=== PATIENT | female | born 1995 ===

== ENCOUNTER 2016-11-26 15:53 | Emergency (ER) | payer OTHER ==
[2016-11-26 15:54] VITALS: BMI 23.0
[2016-11-26 16:23] VITALS: TEMP 98.3
--- NOTE | 2016-11-26 17:45 | C.PDOC ---
Time Seen by Provider: 11/26/16 16:35 Chief Complaint (Nursing): Lower Extremity Problem/Injury Past Medical History Vital Signs: Last Vital Signs Temp 98.3 F 11/26/16 16:18 Pulse 76 11/26/16 16:18 Resp 20 11/26/16 16:18 BP 132/89 11/26/16 16:18 Pulse Ox 100 11/26/16 16:18 - Medical History PMH: Denies: HIV, Chronic Kidney Disease Family History: States: Unknown Family Hx - Social History Hx Alcohol Use: No Hx Substance Use: No - Immunization History Hx Tetanus Toxoid Vaccination: Yes Hx Influenza Vaccination: Yes Hx Pneumococcal Vaccination: Yes ED Course And Treatment O2 Sat by Pulse Oximetry: 100 Disposition - Disposition Referrals: Yvette Dow MD [Staff Provider] - Disposition: HOME/ ROUTINE Disposition Time: 17:43 Condition: STABLE Additional Instructions: Follow up with PMD and Orthopedist within 1-2 days. Return to ED if feel worse. Prescriptions: Ibuprofen [Motrin Tab] 600 mg PO Q8 #30 tab Instructions: Ankle Sprain (ED), Ankle Stirrup Splint (ED) Forms: School Excuse, Work Excuse Print Language: CROATIAN - Clinical Impression Clinical Impression: Ankle sprain
--- NOTE | 2016-11-26 17:46 | C.PDOC ---
History Of Present Illness A 21 year old female presents to the emergency room with right ankle and right foot pain after tripping and falling this morning. Patient notices some swelling. There are no exacerbating or relieving factors. Patient is able to ambulate without difficulty. Patient denies any head trauma/injury, any other pain, numbness, weakness, any sensory changes, or any other complaints. Time Seen by Provider: 11/26/16 16:35 Chief Complaint (Nursing): Lower Extremity Problem/Injury History Per: Patient History/Exam Limitations: no limitations Onset/Duration Of Symptoms: Hrs Current Symptoms Are (Timing): Still Present Severity: Mild Recent travel outside of the [place]: No - Ankle/Foot Description Of Injury: Fell Past Medical History Reviewed: Historical Data, Nursing Documentation, Vital Signs Vital Signs: Last Vital Signs Temp 98.3 F 11/26/16 16:18 Pulse 72 11/26/16 17:48 Resp 18 11/26/16 17:48 BP 120/71 11/26/16 17:48 Pulse Ox 100 11/27/16 16:22 - Medical History PMH: Denies: HIV, Chronic Kidney Disease Family History: States: Unknown Family Hx - Social History Hx Alcohol Use: No Hx Substance Use: No - Immunization History Hx Tetanus Toxoid Vaccination: Yes Hx Influenza Vaccination: Yes Hx Pneumococcal Vaccination: Yes Review Of Systems Except As Marked, All Systems Reviewed And Found Negative. Constitutional: Negative for: Fever, Chills Gastrointestinal: Negative for: Nausea, Vomiting, Diarrhea Musculoskeletal: Positive for: Foot Pain (Right ankle and right foot pain) Neurological: Negative for: Weakness, Numbness Physical Exam - Physical Exam Appears: Well, Non-toxic, No Acute Distress Skin: Normal Color, Warm, Dry Head: Atraumatic, Normacephalic Extremity: Normal ROM, Tenderness (Some swelling and tenderness to the right medial malleolus.), No Pedal Edema, No Calf Tenderness, No Deformity, Swelling Pulses: Left Dorsalis Pedis: Normal, Right Dorsalis Pedis: Normal Neurological/Psych: Oriented x3, Normal Speech, Normal Cognition, Normal Motor, Normal Sensation Gait: Steady ED Course And Treatment O2 Sat by Pulse Oximetry: 100 - Other Rad X-ray X-Ray: Interpreted by Me, Viewed By Me Interpretation: Right Foot X-ray Impression: As read by me, no acute fractures or dislocations. Right Ankle X-ray Impression: As read by me, no acute fractures or dislocations. Progress Note: X-rays are negative. Tylenol given for pain. On reassessment, patient is resting comfortably, with improvement of right foot and ankle pain. Patient remains afebrile, with no bony tenderness, extremity numbness or weakness, or any other pain. Patient wastreated with aircast and crutches that were applied by CP and checked by me. Patient was advised to follow up with PMD/ Ortho in 1-2 days. Disposition - Disposition Referrals: Yvette Dow MD [Staff Provider] - Disposition: HOME/ ROUTINE Disposition Time: 17:46 Condition: STABLE Additional Instructions: Follow up with PMD and Orthopedist within 1-2 days. Return to ED if feel worse. Prescriptions: Ibuprofen [Motrin Tab] 600 mg PO Q8 #30 tab Instructions: Ankle Sprain (ED), Ankle Stirrup Splint (ED) Forms: School Excuse, Work Excuse Print Language: CENTRAL AFRICAN - Clinical Impression Clinical Impression: Ankle sprain - Scribe Statement The provider has reviewed the documentation as recorded by the Scribnaida Palacios All medical record entries made by the Scribe were at my direction and personally dictated by me. I have reviewed the chart and agree that the record accurately reflects my personal performance of the history, physical exam, medical decision making, and the department course for this patient. I have also personally directed, reviewed, and agree with the discharge instructions and disposition.
[2016-11-26 17:48] VITALS: BP 120/71; PULSE 72; RESP 18
[2016-11-26 17:49] VITALS: O2SAT 100
--- NOTE | 2016-11-27 10:11 | RAD ---
PROCEDURE: Right Foot Radiographs. HISTORY: injury COMPARISON: None. FINDINGS: BONES: Normal. No fracture. JOINTS: Normal. SOFT TISSUES: Normal. OTHER FINDINGS: None. IMPRESSION: Normal right foot radiographs.
--- NOTE | 2016-11-27 10:12 | RAD ---
PROCEDURE: Right Ankle Radiographs. HISTORY: fall COMPARISON: None FINDINGS: BONES: Normal. No fracture. JOINTS: Normal. No osteoarthritis. Ankle mortise maintained. Talar dome intact SOFT TISSUES: Normal. OTHER FINDINGS: None. IMPRESSION: Normal right ankle radiographs.
== END 2016-11-26 18:02 | disposition home or self-care (01) ==
LOC: C.ER 15:53
DX: S93.401A Sprain of unspecified ligament of right ankle, initial encounter (principal); W01.0XXA Fall on same level from slipping, tripping and stumbling without subsequent striking against object, initial encounter

== ENCOUNTER 2017-09-28 07:48 | Emergency (ER) | payer SELFPAY ==
[2017-09-28 07:53] VITALS: BMI 22.3
[2017-09-28 07:55] VITALS: RESP 18
[2017-09-28] MEDS ORDERED: Dexamethasone 4 mg/1 ml IVP STA (08:14)
[2017-09-28] MEDS ORDERED: Sodium Chloride 0.9% 1,000 ML IV STA (08:14)
[2017-09-28] MEDS ORDERED: Sodium Chloride 0.9% 1,000 ML ONE (08:28)
[2017-09-28] MEDS ORDERED: Dexamethasone 4 mg/1 ml ONE (08:28)
[2017-09-28 08:40] LABS: SQUAMOUS EPITHIAL 3 /hpf (0-5); URINE BILIRUBIN NEGATIVE (NEGATIVE); URINE BLOOD NEGATIVE (NEGATIVE); URINE CLARITY Clear (Clear); URINE COLOR Yellow (YELLOW); URINE GLUCOSE (UA) NORMAL (Normal); URINE LEUKOCYTE ESTERASE NEG Leu/uL (Negative); URINE NITRATE NEGATIVE (NEGATIVE); URINE PROTEIN NEGATIVE (NEGATIVE)
[2017-09-28 08:41] LABS: HCG,QUALITATIVE URINE NEGATIVE (NEGATIVE)
[2017-09-28 08:42] LABS: BASO # 0.1 K/uL (0.0-0.2); BASO % 0.5 % (0.0-2.0); HEMOGLOBIN 13.7 g/dL (11.0-16.0); LYMPH # 1.1 K/uL (1.0-4.3); MEAN CELL VOLUME 90.7 fL (81.0-99.0); MEAN CORPUSCULAR HGB CONC 34.2 g/dL (33.0-37.0); MEAN PLATELET VOLUME 8.6 fL (7.2-11.7); MONO # 0.8 K/uL (0.0-0.8); MONO % 7.8 % (0.0-10.0); NEUT # 8.9 K/uL (1.8-7.0); NEUT % 81.7 % (50.0-75.0); RBC 4.43 Mil/uL (3.80-5.20); RED CELL DISTRIBUTION WIDTH 13.3 % (11.5-14.5); WHITE BLOOD COUNT 10.9 K/uL (4.8-10.8)
[2017-09-28 08:57] LABS: ALB/GLOB RATIO 1.1 (1.0-2.1); ALBUMIN 4.4 g/dL (3.5-5.0); ALT/SGPT 28 U/L (9-52); AST/SGOT 21 U/L (14-36); BLOOD UREA NITROGEN 8 mg/dL (7-17); CALCIUM 9.5 mg/dl (8.6-10.4); GFR AFRICAN-AMERICAN > 60; GFR NON-AFRICAN AMERICAN > 60
--- NOTE | 2017-09-28 09:48 | C.PDOC ---
History Of Present Illness 22 yr old female presents to the ER with complaints of fever, sore throat and headache for the past 2 days. Patient denies sick contact, vision changes, chest pain, SOB, nausea, vomiting, abdominal pain, weakness or numbness. Time Seen by Provider: 09/28/17 07:56 Chief Complaint (Nursing): ENT Problem History Per: Patient History/Exam Limitations: None Onset/Duration Of Symptoms: Days (2) Current Symptoms Are (Timing): Still Present Past Medical History Reviewed: Historical Data, Nursing Documentation, Vital Signs Vital Signs: Last Vital Signs Temp 100.0 F H 09/28/17 09:55 Pulse 80 09/28/17 09:55 Resp 18 09/28/17 09:55 BP 128/78 09/28/17 09:55 Pulse Ox 97 09/28/17 11:04 Family History: States: No Known Family Hx - Social History Hx Alcohol Use: No Hx Substance Use: No - Immunization History Hx Tetanus Toxoid Vaccination: No Hx Influenza Vaccination: No Hx Pneumococcal Vaccination: No Review Of Systems Except As Marked, All Systems Reviewed And Found Negative. Constitutional: Positive for: Fever (subjective) Eyes: Negative for: Vision Change ENT: Positive for: Throat Pain (sore throat) Cardiovascular: Negative for: Chest Pain Respiratory: Negative for: Shortness of Breath Gastrointestinal: Negative for: Nausea, Vomiting, Abdominal Pain Neurological: Positive for: Headache. Negative for: Weakness, Numbness Physical Exam - Physical Exam Appears: Non-toxic, No Acute Distress Skin: Warm, Dry Head: Atraumatic, Normacephalic Eye(s): bilateral: Normal Inspection, PERRL, EOMI Ear(s): Bilateral: Normal Oral Mucosa: Moist Throat: Erythema, Exudate (grayish tonsilar exudates) Neck: Normal, Normal ROM, Supple Lymphatic: Adenopathy (anterior cervical adenopathy) Cardiovascular: Rhythm Regular, No Murmur Respiratory: Normal Breath Sounds, No Rales, No Rhonchi, No Stridor, No Wheezing Gastrointestinal/Abdominal: Normal Exam, Soft, No Tenderness, No Organomegaly, No Distention, No Guarding, No Rebound Extremity: Normal ROM, No Swelling Neurological/Psych: Oriented x3, Normal Speech, Normal Motor, Normal Sensation ED Course And Treatment - Laboratory Results Result Diagrams: 09/28/17 08:39 03/04/18 08:39 O2 Sat by Pulse Oximetry: 97 (RA) Pulse Ox Interpretation: Normal Progress Note: Patient tested positive for monospot. Treated with IV fluids, Toradol and Decadron. On reevaluation, patient reports improvement in symptoms. Denies difficulty swallowing. Patient is dischagred home to follow up at the clinic in 1-2 days for further evaluation. Medical Decision Making Medical Decision Making: PLAN: * Labs * Monospot * Rapid Strep * HCG * Urinalysis * Decadron IVP * Toradol IVP * Sodium Chloride IV Disposition - Disposition Referrals: [facility] [Outside] Disposition: HOME/ ROUTINE Disposition Time: 09:45 Condition: IMPROVED Additional Instructions: Follow up with PMD within 1-2 days. Return to ED if feel worse. 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 - Scribe Statement The provider has reviewed the documentation as recorded by the Scribe Chery Albright All medical record entries made by the Scribe were at my direction and personally dictated by me. I have reviewed the chart and agree that the record accurately reflects my personal performance of the history, physical exam, medical decision making, and the department course for this patient. I have also personally directed, reviewed, and agree with the discharge instructions and disposition.
[2017-09-28 09:55] VITALS: BP 128/78; PULSE 80; TEMP 100
[2017-09-28 11:05] VITALS: O2SAT 97
== END 2017-09-28 10:00 | disposition home or self-care (01) ==
LOC: C.ER 07:48
DX: B27.90 Infectious mononucleosis, unspecified without complication (principal)
CPT/HCPCS: 80053; 81001; 84703; 85025; 86308; 87070; 87430; 96361; 96374; 96375; 99283; J1100; J1885; J7040

== ENCOUNTER 2017-12-05 16:21 | Emergency (ER) | payer OTHER ==
[2017-12-05 16:22] VITALS: BMI 22.3
[2017-12-05 16:26] VITALS: TEMP 98.1
--- NOTE | 2017-12-05 17:15 | C.PDOC ---
History Of Present Illness 22 y/o female presents to ED with complaints of vaginal bleeding and suprapubic cramping for 5 days associated with back pain. Patient states she was late on her menses 10/30/17 and took 2 home test which was positive. The patient went to clinic yesterday where they did urine test and blood test, the urine was negative and she was told she "had a miscarriage". She does not know results of blood test. Patient is concerned she is bleeding and wants to know if she is . Denies fever, chills, vomiting, dysuria or dizziness. LMP Time Seen by Provider: 12/05/17 16:58 Chief Complaint (Nursing): Female Genitourinary History Per: Patient History/Exam Limitations: no limitations Onset/Duration Of Symptoms: Days Current Symptoms Are (Timing): Still Present Past Medical History Reviewed: Historical Data, Nursing Documentation, Vital Signs Vital Signs: Last Vital Signs Temp 98.1 F 12/05/17 16:25 Pulse 84 12/05/17 17:29 Resp 16 12/05/17 17:29 BP 119/74 12/05/17 17:29 Pulse Ox 100 12/05/17 17:50 - Medical History PMH: No Chronic Diseases Surgical History: No Surg Hx Family History: States: No Known Family Hx - Social History Hx Alcohol Use: No Hx Substance Use: No - Immunization History Hx Tetanus Toxoid Vaccination: No Hx Influenza Vaccination: No Hx Pneumococcal Vaccination: No Review Of Systems Constitutional: Negative for: Fever, Chills Gastrointestinal: Negative for: Nausea, Vomiting Genitourinary: Positive for: Vaginal Bleeding. Negative for: Dysuria Skin: Negative for: Rash Neurological: Negative for: Weakness, Numbness Physical Exam - Physical Exam Appears: Non-toxic, No Acute Distress Skin: Warm, Dry, No Rash Head: Atraumatic, Normacephalic Eye(s): bilateral: Normal Inspection, EOMI Oral Mucosa: Moist Neck: Normal ROM, Supple Cardiovascular: Rhythm Regular Respiratory: Normal Breath Sounds, No Rales, No Rhonchi, No Wheezing Gastrointestinal/Abdominal: Soft, No Tenderness, No Guarding, No Rebound Extremity: Normal ROM, Capillary Refill (<2 seconds) Neurological/Psych: Oriented x3, Normal Speech, Normal Cognition ED Course And Treatment O2 Sat by Pulse Oximetry: 100 (RA) Pulse Ox Interpretation: Normal Medical Decision Making Medical Decision Making: Impression: vaginal bleeding, unknown preg status Plan: * POC urine preg Progress: test was negative. Patient made aware of the result. 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 Patient stable for discharge Disposition Counseled Patient/Family Regarding: Diagnosis, Need For Followup - Disposition [facility]] Disposition: HOME/ ROUTINE Disposition Time: 17:15 Condition: STABLE Additional Instructions: Tu prueba fue negativa para el embarazo seguimiento en la clnica para ms ara lawrenceskyler Instructions: Tests Forms: [employer] (Serbian) Print Language: ARMENIAN - POA Present On Arrival: None - Clinical Impression Clinical Impression: Negative test - PA / PATROL JUDGE / Resident Statement MD/DO has reviewed & agrees with the documentation as recorded. - Scribe Statement The provider has reviewed the documentation as recorded by the Katja Willett All medical record entries made by the Katja were at my direction and personally dictated by me. I have reviewed the chart and agree that the record accurately reflects my personal performance of the history, physical exam, medical decision making, and the department course for this patient. I have also personally directed, reviewed, and agree with the discharge instructions and disposition.
[2017-12-05 17:30] VITALS: BP 119/74; PULSE 84; RESP 16
[2017-12-05 17:46] VITALS: O2SAT 100
== END 2017-12-05 17:29 | disposition home or self-care (01) ==
LOC: C.ER 16:21
DX: Z32.02 Encounter for pregnancy test, result negative (principal)

== ENCOUNTER 2018-01-15 15:36 | Emergency (ER) | payer OTHER ==
[2018-01-15 15:53] VITALS: O2SAT 100; BMI 24.0
--- NOTE | 2018-01-15 16:19 | C.PDOC ---
History Of Present Illness 22 y/o female c/o lower right arm/wrist pain x 1 week after lifting something heavy. no swelling. no analgesics tried at home, pain worse with certain movement. Denies numbness or weakness. Time Seen by Provider: 01/15/18 15:54 Chief Complaint (Nursing): Finger,Hand,&Wrist History Per: Patient History/Exam Limitations: no limitations Onset/Duration Of Symptoms: Days Current Symptoms Are (Timing): Still Present Quality: "Pain" Severity: Moderate Exacerbating Factor(s): Movement Past Medical History Reviewed: Historical Data, Nursing Documentation, Vital Signs Vital Signs: Last Vital Signs Temp 98 F 01/15/18 17:08 Pulse 60 01/15/18 17:08 Resp 20 01/15/18 17:08 BP 114/70 01/15/18 17:08 Pulse Ox 100 01/15/18 17:24 - Medical History PMH: No Chronic Diseases Denies: HIV, Chronic Kidney Disease Surgical History: No Surg Hx Family History: States: No Known Family Hx - Social History Hx Alcohol Use: No Hx Substance Use: No - Immunization History Hx Tetanus Toxoid Vaccination: No Hx Influenza Vaccination: No Hx Pneumococcal Vaccination: No Review Of Systems Musculoskeletal: Positive for: Arm Pain (lower right arm/ wrist pain), Hand Pain (wrist). Negative for: Neck Pain Skin: Negative for: Rash Neurological: Negative for: Weakness, Numbness Physical Exam - Physical Exam Appears: Non-toxic, No Acute Distress Skin: Warm, Dry Head: Atraumatic, Normacephalic Eye(s): bilateral: Normal Inspection Neck: No Midline Cervical Tenderness, Supple Extremity: Normal ROM, Tenderness (tenderness to radial aspect of distal right forearm, wrist, and hand, worse with ulnar deviation of wrist, no swelling noted. ), Capillary Refill (less than 2 seconds. ), No Swelling Pulses: Left Radial: Normal, Right Radial: Normal Neurological/Psych: Oriented x3, Normal Speech, Normal Cognition, Normal Motor, Normal Sensation ED Course And Treatment O2 Sat by Pulse Oximetry: 100 (RA) Pulse Ox Interpretation: Normal Medical Decision Making Medical Decision Making: Plan: --Tylenol PO pt feeling better after wrist splint applied. will d/c home with ortho f/u Disposition Counseled Patient/Family Regarding: Diagnosis, Need For Followup, Rx Given - Disposition Referrals: Yvette Dow MD [Staff Provider] - James Ca MD [Staff Provider] - [facility] [Outside] Disposition: HOME/ ROUTINE Disposition Time: 17:21 Condition: GOOD Additional Instructions: Por favor, use frula para la mueca para mayor comodidad timmy unos ruiz. Realice un seguimiento con el Dr. Ca, el Dr. Crawford o en lenny clnica mdica ( ortopdica) en los prximos ruiz. Tylenol para el dolor dmitriy prescrbied, comprime en fro varias veces al da. Evite levantar objetos pesados. Please wear wrist splint for comfort for a few days. Please follow up with either Dr Ca, Dr Crawford or in medical(orthopedic) clinic in the next few days. Tylenol for pain as prescrbied, Cold compresses several times a day. Avoid heavy lifting. Prescriptions: Acetaminophen [Tylenol 325mg tab] 650 mg PO Q4 #50 tab Instructions: Wrist Sprain (DC) Forms: Gen Discharge Inst Micronesian, [employer] (Micronesian) Print Language: PERSIAN - Clinical Impression Clinical Impression: Sprain of wrist, right - PA / NURSE SUBSTANCE ABUSE / Resident Statement MD/DO has reviewed & agrees with the documentation as recorded. - Scribe Statement The provider has reviewed the documentation as recorded by the Scribe Jean Ferrer Provider Attestation All medical record entries made by the Scribe were at my direction and personally dictated by me. I have reviewed the chart and agree that the record accurately reflects my personal performance of the history, physical exam, medical decision making, and the department course for this patient. I have also personally directed, reviewed, and agree with the discharge instructions and disposition.
[2018-01-15 17:09] VITALS: BP 114/70; PULSE 60; RESP 20; TEMP 98
== END 2018-01-15 17:31 | disposition home or self-care (01) ==
LOC: C.ER 15:36
DX: S63.501A Unspecified sprain of right wrist, initial encounter (principal); X50.0XXA Overexertion from strenuous movement or load, initial encounter; Y92.9 Unspecified place or not applicable

== ENCOUNTER 2018-04-02 15:26 | Emergency (ER) | payer OTHER ==
[2018-04-02 15:34] VITALS: BMI 23.8
[2018-04-02 15:36] VITALS: BP 132/81; PULSE 62; RESP 16; TEMP 98.7; O2SAT 100
--- NOTE | 2018-04-02 15:44 | C.PDOC ---
History Of Present Illness 22 year old female presents to ED for evaluation of sore throat for the past 4 days. Denies fevers, nausea, vomiting. Denies other associated symptoms. SORE THROAT X 4 DAYS. NO FEVER. DENIES OTHER ASSOC SX EXAM NAD HEENT +PHARYNGITIS W EXUDATE. MIN SWELLING REMAINDER NEG Time Seen by Provider: 04/02/18 15:34 History Per: Patient History/Exam Limitations: no limitations Onset/Duration Of Symptoms: Days Current Symptoms Are (Timing): Still Present Past Medical History Reviewed: Historical Data, Nursing Documentation, Vital Signs Vital Signs: Last Vital Signs Temp 98.7 F 04/02/18 15:35 Pulse 62 04/02/18 15:35 Resp 16 04/02/18 15:35 BP 132/81 04/02/18 15:35 Pulse Ox 100 04/02/18 16:24 - Medical History PMH: Denies: HIV, Chronic Kidney Disease Surgical History: No Surg Hx Family History: States: Unknown Family Hx - Social History Hx Alcohol Use: No Hx Substance Use: No - Immunization History Hx Tetanus Toxoid Vaccination: No Hx Influenza Vaccination: No Hx Pneumococcal Vaccination: No Review Of Systems Except As Marked, All Systems Reviewed And Found Negative. Constitutional: Negative for: Fever, Chills ENT: Positive for: Throat Pain. Negative for: Nose Congestion Respiratory: Negative for: Cough Gastrointestinal: Negative for: Nausea, Vomiting Physical Exam - Physical Exam Appears: Well, Non-toxic, No Acute Distress Skin: Normal Color, Warm, Dry Head: Atraumatic, Normacephalic Eye(s): bilateral: Normal Inspection, PERRL, EOMI Throat: Exudate (+PHARYNGITIS W EXUDATE. MINIMAL SWELLING) Neck: Normal, Supple Chest: Symmetrical Cardiovascular: Rhythm Regular Respiratory: Normal Breath Sounds, Other (NARD) Extremity: Bilateral: Atraumatic, Normal Color And Temperature Pulses: Left Radial: Normal, Right Radial: Normal Neurological/Psych: Oriented x3, Normal Speech Gait: Steady ED Course And Treatment O2 Sat by Pulse Oximetry: 100 (RA) Pulse Ox Interpretation: Normal Medical Decision Making Medical Decision Making: Patient sent home with Amoxcillin, Decadron, Motril. Advised to follow up with PMD. Disposition Counseled Patient/Family Regarding: Diagnosis, Need For Followup, Rx Given - Disposition Referrals: [facility] [Outside] [facility] [Outside] Disposition: HOME/ ROUTINE Disposition Time: 15:42 Condition: GOOD Prescriptions: Amoxicillin [Amoxil 500 mg Cap] 500 mg PO BID #20 cap Dexamethasone [Decadron] 12 mg PO ONCE #3 tab Ibuprofen [Motrin] 600 mg PO Q6 #30 tab Instructions: Sore Throat, Adult (DC) Forms: [facility] (Paraguayan) Print Language: JAPANESE - Clinical Impression Clinical Impression: Pharyngitis - Scribe Statement The provider has reviewed the documentation as recorded by the Scribe (Caitlyn Torrez) Provider Attestation: All medical record entries made by the Scribe were at my direction and personally dictated by me. I have reviewed the chart and agree that the record accurately reflects my personal performance of the history, physical exam, medical decision making, and the department course for this patient. I have also personally directed, reviewed, and agree with the discharge instructions and disposition.
== END 2018-04-02 15:54 | disposition home or self-care (01) ==
LOC: C.ER 15:26
DX: J02.9 Acute pharyngitis, unspecified (principal)

== ENCOUNTER 2018-11-09 15:30 | Emergency (ER) | payer SELFPAY ==
[2018-11-09 17:01] VITALS: BMI 23.0
[2018-11-09 17:34] VITALS: PULSE 74
[2018-11-09] MEDS ORDERED: Sodium Chloride 0.9% 1,000 ML IV ONE (17:49)
[2018-11-09 18:38] LABS: BASO % 0.2 % (0.0-2.0); EOS % 0.6 % (0.0-4.0); HEMOGLOBIN 12.9 g/dL (11.0-16.0); LYMPH # 1.2 K/uL (1.0-4.3); LYMPH % 23.5 % (20.0-40.0); MEAN CELL VOLUME 91.4 fL (81.0-99.0); MEAN CORPUSCULAR HEMOGLOBIN 30.2 pg (27.0-31.0); MEAN PLATELET VOLUME 8.8 fL (7.2-11.7); MONO # 0.4 K/uL (0.0-0.8); MONO % 8.4 % (0.0-10.0); NEUT # 3.4 K/uL (1.8-7.0); NEUT % 67.3 % (50.0-75.0); RBC 4.29 Mil/uL (3.80-5.20); RED CELL DISTRIBUTION WIDTH 13.8 % (11.5-14.5)
[2018-11-09 18:42] LABS: WHITE BLOOD COUNT 5.1 K/uL (4.8-10.8)
[2018-11-09 18:52] LABS: ALB/GLOB RATIO 1.5 (1.0-2.1); ALBUMIN 4.4 g/dL (3.5-5.0); ALT/SGPT 19 U/L (9-52); AST/SGOT 20 U/L (14-36); BLOOD UREA NITROGEN 8 mg/dL (7-17); CALCIUM 9.2 mg/dl (8.6-10.4); GFR NON-AFRICAN AMERICAN > 60; LIPASE 70 U/L (23-300)
[2018-11-09 19:10] LABS: SQUAMOUS EPITHIAL < 1 /hpf (0-5); URINE BACTERIA OCC (<OCC)
[2018-11-09 19:20] LABS: URINE CLARITY CLEAR (Clear); URINE COLOR YELLOW (YELLOW); URINE GLUCOSE (UA) NEGATIVE (Normal)
[2018-11-09 19:21] LABS: URINE BILIRUBIN NEGATIVE (NEGATIVE); URINE BLOOD NEGATIVE (NEGATIVE); URINE LEUKOCYTE ESTERASE NEGATIVE Leu/uL (Negative); URINE PROTEIN NEGATIVE (NEGATIVE); URINE UROBILINOGEN 0.2 mg/dL (0.2-1.0)
[2018-11-09 20:00] VITALS: BP 115/72; RESP 16; TEMP 98.2; O2SAT 98
--- NOTE | 2018-11-09 20:05 | C.PDOC ---
History Of Present Illness 23 year old female presents to ED with complaint of epigastric pain for the past 4 days. Patient also complains of mild nausea. Patient denies changes in appetite, vomiting, diarrhea, and fever. Chief Complaint (Nursing): Abdominal Pain History Per: Patient History/Exam Limitations: no limitations Onset/Duration Of Symptoms: Days (4) Current Symptoms Are (Timing): Still Present Location Of Pain/Discomfort: Epigastric Radiation Of Pain To:: None Quality Of Discomfort: "Pain" Associated Symptoms: Nausea. denies: Fever, Vomiting, Diarrhea Exacerbating Factors: None Alleviating Factors: None Past Medical History Reviewed: Historical Data, Nursing Documentation, Vital Signs Vital Signs: Last Vital Signs Temp 98.2 F 11/09/18 19:58 Pulse 74 11/09/18 19:58 Resp 16 11/09/18 19:58 BP 115/72 11/09/18 19:58 Pulse Ox 98 11/09/18 19:58 - Medical History PMH: Denies: HIV, Chronic Kidney Disease Surgical History: No Surg Hx Family History: States: Unknown Family Hx - Social History Hx Alcohol Use: Yes Hx Substance Use: No - Immunization History Hx Tetanus Toxoid Vaccination: No Hx Influenza Vaccination: No Hx Pneumococcal Vaccination: Yes (''2-yrs ago'') Review Of Systems Constitutional: Negative for: Fever, Other (changes in appetite) Gastrointestinal: Positive for: Nausea, Abdominal Pain (epigastric pain ). Negative for: Vomiting, Diarrhea Physical Exam - Physical Exam Appears: Non-toxic, No Acute Distress Skin: Normal Color, Warm, Dry Head: Atraumatic, Normacephalic Neck: Normal ROM, Supple Chest: Symmetrical, No Deformity Cardiovascular: Rhythm Regular, No Murmur Respiratory: No Accessory Muscle Use, No Rales, No Rhonchi, No Wheezing Gastrointestinal/Abdominal: Soft, Tenderness (minimal epigastric tenderness) Neurological/Psych: Oriented x3, Normal Speech, Normal Cognition ED Course And Treatment - Laboratory Results Result Diagrams: 11/09/18 18:35 11/09/18 18:35 Lab Results: Total Bilirubin 1.2 mg/dL (0.2-1.3) 11/09/18 18:35 AST 20 U/L (14-36) 11/09/18 18:35 ALT 19 U/L (9-52) 11/09/18 18:35 Alkaline Phosphatase 63 U/L (38-126) 11/09/18 18:35 Total Protein 7.3 g/dL (6.3-8.3) 11/09/18 18:35 Albumin 4.4 g/dL (3.5-5.0) 11/09/18 18:35 Globulin 2.9 gm/dL (2.2-3.9) 11/09/18 18:35 Albumin/Globulin Ratio 1.5 (1.0-2.1) 11/09/18 18:35 Lipase 70 U/L (23-300) 11/09/18 18:35 Urine Color Yellow (YELLOW) 11/09/18 18:35 Urine Clarity Clear (Clear) 11/09/18 18:35 Urine pH 6.0 (5.0-8.0) 11/09/18 18:35 Ur Specific [place] 1.010 (1.003-1.030) 11/09/18 18:35 Urine Protein Negative mg/dL (NEGATIVE) 11/09/18 18:35 Urine Glucose (UA) Negative mg/dL (Normal) 11/09/18 18:35 Urine Ketones Negative mg/dL (NEGATIVE) 11/09/18 18:35 Urine Blood Negative (NEGATIVE) 11/09/18 18:35 Urine Nitrate Negative (NEGATIVE) 11/09/18 18:35 Urine Bilirubin Negative (NEGATIVE) 11/09/18 18:35 Urine Urobilinogen 0.2 mg/dL (0.2-1.0) 11/09/18 18:35 Ur Leukocyte Esterase Negative [place]/uL (Negative) 11/09/18 18:35 Urine WBC (Auto) < 1 /hpf (0-5) 11/09/18 18:35 Urine RBC (Auto) 1 /hpf (0-3) 11/09/18 18:35 Ur Squamous Epith Cells < 1 /hpf (0-5) 11/09/18 18:35 Urine Bacteria Occ (<OCC) H 11/09/18 18:35 O2 Sat by Pulse Oximetry: 98 (in RA) Medical Decision Making Medical Decision Making: Impression: 23 year old female presents to ED with complaint of epigastric pain for the past 4 days Plan: Labs ordered with CMP, CBC, and UA Patient given pepcid, IV fluids, and zofran Disposition - Disposition Referrals: Cover Profile Req, [Non-Staff] - Disposition: HOME/ ROUTINE Disposition Time: 19:20 Condition: IMPROVED Additional Instructions: VENICE HOLLIDAY, thank you for letting us take care of you today. The emergency medical care you received today was directed at your acute symptoms. If you were prescribed any medication, please fill it and take as directed. It may take several days for your symptoms to resolve. Return to the Emergency Department if your symptoms worsen, do not improve, or if you have any other problems. Please contact your doctor or call one of the physicians/clinics you have been referred to that are listed on the Patient Visit Information form that is included in your discharge packet. Bring any paperwork you were given at discharge with you along with any medications you are taking to your follow up visit. Our treatment cannot replace ongoing medical care by a primary care provider outside of the emergency department. Thank you for allowing the [facility] team to be part of your care today. Follow up with your primary care doctor in 3-4 days for re-evaluation and further management. VENICE HOLLIDAY, zeynep por dejarnos cuidar de usted mirella. La atencin mdica de emergencia que recibi hoy se dirigi a duran sntomas agudos. Si le recetaron algn medicamento, llnelo y tmelo segn las indicaciones. Los sntomas pueden tardar varios ruiz en resolverse. Regrese al Departamento de Emergencias si duran sntomas empeoran, no mejoran o si tiene otros problemas. Comunquese con doan mdico o llame a wayne de los mdicos / clnicas a los que lopez sido referido que figuran en el formulario de Informacin de visita al paciente que se incluye en doan paquete de kel. Lleve todos los documentos que recibi al momento del kel junto con los medicamentos que est tomando para doan visita de seguimiento. Nuestro tratamiento no puede reemplazar la atencin mdica continua por parte de un proveedor de atencin primaria fuera del departamento de emergencias. Zeynep por permitir que el equipo de [facility] [employer] sea parte de doan atencin hoy. Silas un seguimiento con doan mdico de atencin primaria en 3 a 4 ruiz para lenny reevaluacin y manejo adicional. Prescriptions: Famotidine [Pepcid] 20 mg PO BID #20 tab Instructions: Gastritis (DC) Forms: [employer] (Sudanese) Print Language: SETSWANA - Clinical Impression Clinical Impression: Gastritis - Scribe Statement The provider has reviewed the documentation as recorded by the Scribe (Bety Aguilar) All medical record entries made by the Scribe were at my direction and personally dictated by me. I have reviewed the chart and agree that the record accurately reflects my personal performance of the history, physical exam, medical decision making, and the department course for this patient. I have also personally directed, reviewed, and agree with the discharge instructions and disposition.
== END 2018-11-09 20:00 | disposition home or self-care (01) ==
LOC: C.ER 15:30
DX: K29.70 Gastritis, unspecified, without bleeding (principal)
CPT/HCPCS: 80053; 81001; 81025; 83690; 85025; 96374; 96375; 99284; J2405; J7030